=== PATIENT | female | born 1985 | race Caucasian/White ===

== ENCOUNTER 2021-10-24 11:03 | Emergency (ER) | payer OTHER ==
[~2021-10-24] VITALS: Ht 177.8 cm; Wt 88.2 kg
[2021-10-24] MEDS ORDERED: ZANAFLEX4 MG PO (11:25)
[2021-10-24] MEDS ORDERED: ONDANSETRON ODT4 MG PO (11:25)
[2021-10-24] MEDS ORDERED: IBUPROFEN200 MG PO (11:25)
[2021-10-24] MEDS ORDERED: ACETAMINOPHEN500 MG PO (11:25)
[2021-10-24] MEDS ORDERED: ONDANSETRON HCL 4 MG ORAL DISINTEGRATING TAB PO ONE (11:30)
[2021-10-24] MEDS ORDERED: ACETAMINOPHEN 325 MG TAB PO ONE (11:30)
[2021-10-24] MEDS ORDERED: DEXAMETHASONE SOD PHOS 10 MG/1 ML VIAL IM ONE (11:30)
[2021-10-24] MEDS ORDERED: IBUPROFEN 600 MG TAB PO ONE (11:30)
[2021-10-24] MEDS ORDERED: DEXAMETHASONE SOD PHOS INJ 4 MG/ML SDV ONE (11:36)
[2021-10-24] MEDS ORDERED: IBUPROFEN 600 MG TAB ONE (11:36)
[2021-10-24] MEDS ORDERED: ACETAMINOPHEN 325 MG TAB ONE (11:37)
[2021-10-24] MEDS ORDERED: ONDANSETRON HCL 4 MG ORAL DISINTEGRATING TAB ONE (11:37)
== END 2021-10-24 11:41 | disposition home or self-care (01) ==
LOC: FSED 11:10
DX: M43.6 Torticollis (principal); G44.209 Tension-type headache, unspecified, not intractable; E03.9 Hypothyroidism, unspecified
CPT/HCPCS: 96372; 99283; J1100; Q0162